=== PATIENT | male | born 1995 | race Caucasian/White ===

== ENCOUNTER 2016-08-13 20:43 | Emergency (ER) | payer SELFPAY ==
[2016-08-13 20:48] VITALS: BP 157/91
--- NOTE | 2016-08-13 21:03 | PHYS DOC ---
Past Medical History Past Medical History: Asthma, Other Additional Past Medical Histor: CURRENT RIGHT COLLAR BONE FX Past Surgical History: No Surgical History Alcohol Use: None Drug Use: None Adult General Chief Complaint Chief Complaint: SORE THROAT HPI HPI Patient is a 21 year old male presents emergency Department stating he's had a cough and congestion as well as use. He states that he has had sinus pressure. He states that he's had a sore throat. His been temperatures but 3. His been taken Tylenol and ibuprofen at home with a list is a Tylenol in a 1:00. Patient states is also been having some vomiting and diarrhea. He states since Saturday he has vomited approximately 3-4 times with the last one having slight blood mixed in with mucus. He states his been having diarrhea stools approximately 5- 6 on Saturday with no blood noted in the stools. Review of Systems Review of Systems Constitutional: Denies fever or chills [] Eyes: Denies change in visual acuity, redness, or eye pain [] HENT: nasal congestion and sore throat [] Respiratory: cough and shortness of breath with drinking fluids and coughing[] Cardiovascular: No additional information not addressed in HPI [] GI: Denies abdominal pain, nausea, vomiting, bloody stools or diarrhea [] : Denies dysuria or hematuria [] Musculoskeletal: Denies back pain or joint pain [] Integument: Denies rash or skin lesions [] Neurologic: Denies headache, focal weakness or sensory changes [] Current Medications Current Medications Current Medications Medications (Trade) Dose Ordered Sig/Dina Start Time Stop Time Status Last Admin Dose Admin Ibuprofen (Motrin) 800 mg 1X ONCE 08/13/16 22:00 08/13/16 22:01 08/13/16 21:31 800 MG Allergies Allergies Allergies Coded Allergies Type Severity Reaction Last Updated Verified No Known Drug Allergies 04/04/15 No Physical Exam Physical Exam Constitutional: Well developed, well nourished, no acute distress, non-toxic appearance. [] HENT: Normocephalic, atraumatic, bilateral external ears normal, oropharynx moist, no oral exudates, nose normal. Bilateral tympanic membranes appear to be normal. Patient with frontal sinus tenderness noted no maxillary sinus tenderness noted. Patient with postnasal drip. Throat appears to have erythematous with no exudate noted the area does appear to be red. Eyes: PERRLA, EOMI, conjunctiva normal, no discharge. [] Neck: Normal range of motion, no tenderness, supple, no stridor. [] Cardiovascular:Heart rate regular rhythm, no murmur [] Lungs & Thorax: Bilateral breath sounds clear to auscultation [] Skin: Warm, dry, no erythema, no rash. [] Back: No tenderness Extremities: No tenderness, no cyanosis, no clubbing, ROM intact, no edema. [] Neurologic: Alert and oriented X 3, normal motor function, normal sensory function, no focal deficits noted. [] Psychologic: Affect normal, judgement normal, mood normal. [] Current Patient Data Vital Signs Vital Signs Date Time Temp Pulse Resp B/P Pulse Ox O2 Delivery O2 Flow Rate FiO2 08/13/16 20:48 98.1 105 22 97 Room Air 98.1 EKG EKG [] Radiology/Procedures Radiology/Procedures [] Course & Med Decision Making Course & Med Decision Making Pertinent Labs and Imaging studies reviewed. (See chart for details) Chest x-ray was negative Dr. Paris. Influenza swab was not obtained as the patient is 4 days into the nausea vomiting diarrhea an upper respiratory congestion. Patient does have sinus pressure and discomfort. We'll provide him with Augmentin. We'll also provide him with some Zofran to help with his nausea vomiting. Clear liquid diet for the next 24 hours. Patient will be discharged home in stable condition signs and symptoms to return back to emergency department been provided. Patient did not exhibit nausea or vomiting or diarrhea while here in the emergency department. On discharging patient from the emergency department he stated that he was seen at [facility] approximately one week ago and tested positive for influenza as well as he was tested for strep which was negative. Patient states that he was not provided with any medications at that time. [] Dragon Disclaimer Dragon Disclaimer This electronic medical record was generated, in whole or in part, using a voice recognition dictation system. Departure Departure Impression: Primary Impression: Sinusitis Additional Impression: Vomiting Disposition: 01 HOME, SELF-CARE Condition: STABLE Referrals: NO PCP (PCP) Patient Instructions: Nausea and Vomiting, [id number], Sinusitis, Easy-to- Read Additional Instructions: Home to rest Medication as prescribed Tylenol or Ibuprofen for fever, chill or generalized body aches and discomfort Sudafed for frontal headache and pressure Mucinex DM for congestion and cough Followup with your primary care provider in 3-5 days Return to emergency department as needed for signs and symptoms that become worse. Scripts Amoxicillin/Potassium Clav (Augmentin 875-125 Tablet)1 Each Tablet1 Tab PO BID # 20 TAB Prov:HAIDER LIU APRN 08/13/16 Problem Qualifiers AHIDER LIU APRN August 13, 2016 21:03
[2016-08-13] MEDS ORDERED: AMOX1TAB61 PO (21:50)
[2016-08-13] MEDS ORDERED: IBUPROFEN 800 MG TABLET. PO ONE (22:00)
[2016-08-14 07:07] LABS: NEGATIVE OBC STREP NEG; POSITIVE OBC STREP POS
--- NOTE | 2016-08-14 07:57 | RAD ---
Indication shortness of air cough sore throat. PA and lateral views of the chest were obtained. Comparison is made to a single view examination 06/28/2014. The heart and pulmonary vessels appear normal. The lungs are clear. A significant change compared to the previous exam is not seen. IMPRESSION: Normal study.
== END 2016-08-13 21:54 | disposition home or self-care (01) ==
LOC: ER 20:43
DX: J32.1 Chronic frontal sinusitis (principal); R11.2 Nausea with vomiting, unspecified; R19.7 Diarrhea, unspecified; J45.909 Unspecified asthma, uncomplicated
CPT/HCPCS: 71020; 87070; 87880; 99285-25

== ENCOUNTER 2017-06-10 09:47 | Emergency (ER) | payer SELFPAY | END 2017-06-10 11:32 | disposition home or self-care (01) | LOC: ER 09:47 | DX: M25.512 Pain in left shoulder (principal); J45.909 Unspecified asthma, uncomplicated; F12.10 Cannabis abuse, uncomplicated | CPT/HCPCS: 73030; 99284 ==

== ENCOUNTER 2018-07-19 08:44 | Emergency (ER) | payer SELFPAY ==
[~2018-07-19] VITALS: Ht 188 cm; Wt 127.0 kg
[~2018-07-19 08:44] MED LIST: AMOX1TAB61 PO; CYCL10TA2 PO; NAPR-514 PO
--- NOTE | 2018-07-19 09:53 | PHYS DOC ---
Past Medical History Past Medical History: Asthma, Other Additional Past Medical Histor: RIGHT COLLAR BONE FX (REFUGIO RUIZ APRN) Past Surgical History: No Surgical History (REFUGIO RUIZ APRN) Alcohol Use: Occasionally Drug Use: Marijuana (REFUGIO RUIZ APRN) Adult General Chief Complaint Chief Complaint: MULTIPLE COMPLAINTS HPI HPI Patient is a 22 year old with history of smoking, asthma who presents today complaining of productive cough that began yesterday. Patient since this morning he woke up, he started coughing so hard he couldn't go to work. He is requesting a note for work. He is also complaining of a fever. Temperature in the ED is 98.2. (REFUGIO RUIZ APRN) Review of Systems Review of Systems Constitutional: Reports subjective fevers Eyes: Denies change in visual acuity, redness, or eye pain [] HENT: Denies nasal congestion or sore throat [] Respiratory: Reports cough, denies shortness of breath [] Cardiovascular: No additional information not addressed in HPI [] GI: Denies abdominal pain, nausea, vomiting, bloody stools or diarrhea [] : Denies dysuria or hematuria [] Musculoskeletal: Denies back pain or joint pain [] Integument: Denies rash or skin lesions [] Neurologic: Denies headache, focal weakness or sensory changes [] All other systems were reviewed and found to be within normal limits, except as documented in this note. (JOEYTHAIREFUGIO GO) Current Medications Current Medications Current Medications Medications (Trade) Dose Ordered Sig/Dina Start Time Stop Time Status Last Admin Dose Admin Albuterol/ Ipratropium (Duoneb) 3 ml 1X ONCE 07/19/18 10:00 07/19/18 10:01 DC 07/19/18 09:53 3 ML (MARIA L WILSON MD) Allergies Allergies Allergies Coded Allergies Type Severity Reaction Last Updated Verified No Known Drug Allergies 04/04/15 No (MARIA L WILSON MD) Physical Exam Physical Exam Constitutional: Well developed, well nourished, no acute distress, non-toxic appearance. [] HENT: Normocephalic, atraumatic, bilateral external ears normal, oropharynx moist, no oral exudates, nose normal. [] Eyes: PERRLA, EOMI, conjunctiva normal, no discharge. [] Neck: Normal range of motion, no tenderness, supple, no stridor. [] Cardiovascular:Heart rate regular rhythm, no murmur [] Lungs & Thorax: Bilateral breath sounds clear to auscultation [] Abdomen: Bowel sounds normal, soft, no tenderness, no masses, no pulsatile masses. [] Skin: Warm, dry, no erythema, no rash. [] Back: No tenderness, no CVA tenderness. [] Extremities: No tenderness, no cyanosis, no clubbing, ROM intact, no edema. [] Neurologic: Alert and oriented X 3, normal motor function, normal sensory function, no focal deficits noted. [] Psychologic: Affect normal, judgement normal, mood normal. [] (REFUGIO RUIZ APRN) Current Patient Data Vital Signs Vital Signs Date Time Temp Pulse Resp B/P (MAP) Pulse Ox O2 Delivery O2 Flow Rate FiO2 07/19/18 10:45 87 18 122/78 (93) 98 Room Air 07/19/18 09:22 98.2 98.2 (MARIA L WILSON MD) EKG EKG [] (REFUGIO RUIZ APRN) Radiology/Procedures Radiology/Procedures []PROCEDURE: CHEST PA & LATERAL PA and lateral views of the chest. Comparison: Chest radiograph dated 08/13/2016. Indication: SOA,CP,COUGH X1 WEEK HX OF ASTHMA Findings: Normal lung volume. No focal airspace disease. Normal pulmonary vasculature. No pleural effusion. No pneumothorax. The cardiomediastinal silhouette is normal in appearance. The great vessels are normal. No acute osseous abnormality. Impression: 1. No acute cardiopulmonary process. Electronically signed by: Chava Rincon MD (07/19/2018 10:26 AM) [facility] DICTATED and SIGNED BY: CHAVA RINCON MD DATE: 07/19/18 1026 (REFUGIO RUIZ APRN) Course & Med Decision Making Course & Med Decision Making Pertinent Labs and Imaging studies reviewed. (See chart for details) This is a 22-year-old male patient with history of asthma presenting today complaining of cough and fever since yesterday. Patient is afebrile in the ED. Lungs are clear though we ordered a breathing treatment for him per his request. He is a smoker. He was advised to consider smoking cessation. Chest x- ray is negative. Patient was discharged to home. Given a note for work. Given prednisone and Tessalon Perles. Also given albuterol inhaler. Follow-up with PCP in 1-2 weeks. (REFUGIO RUIZ APRN) Course & Med Decision Making Staff Physician Addendum: I was working in the ER during the course of this patient's visit. I was available for consultation as needed, but I was not directly involved in the care of this patient. (MARIA L WILSON MD) Dragon Disclaimer Dragon Disclaimer This electronic medical record was generated, in whole or in part, using a voice recognition dictation system. (REFUGIO RUIZ APRN) Departure Departure Impression: Primary Impression: Smoking addiction Additional Impression: Asthma Disposition: HOME, SELF-CARE Condition: STABLE Referrals: NO PCP (PCP) Patient Instructions: Asthma, Adult, Smoking Cessation Additional Instructions: You were seen in the emergency room for asthma and a cough. Consider smoking cessation. Use the prescribed medications as ordered. Follow-up with your own doctor in 1-2 weeks. Scripts Benzonatate (TESSALON PERLE) 100 Mg Capsule 1 CAP PO TID, #30 CAP Prov: REFUGIO RUIZ APRN 07/19/18 Albuterol Sulfate (VENTOLIN HFA INHALER) 18 Gm Hfa.aer.ad 2 PUFF INH Q4HRS for FOR ASTHMA, #1 INHALER 0 Refills Prov: REFUGIO RUIZ APRN 07/19/18 Prednisone (PREDNISONE) 50 Mg Tablet 1 TAB PO DAILY, #5 TAB Prov: REFUGIO RUIZ APRN 07/19/18 Problem Qualifiers Additional Impression: Asthma Asthma severity: mild Asthma persistence: intermittent Asthma complication type: uncomplicated Qualified Codes: J45.20 - Mild intermittent asthma, uncomplicated REFUGIO RUIZ APRN Jul 19, 2018 09:53 MARIA L WILSON MD Jul 26, 2018 20:17
[2018-07-19] MEDS ORDERED: IPRATRPIUM/ALBUTEROL 0.5/2.5MG 3 ML NEBU. NEB ONE (10:00)
--- NOTE | 2018-07-19 10:29 | RAD ---
PA and lateral views of the chest. Comparison: Chest radiograph dated 08/13/2016. Indication: SOA,CP,COUGH X1 WEEK HX OF ASTHMA Findings: Normal lung volume. No focal airspace disease. Normal pulmonary vasculature. No pleural effusion. No pneumothorax. The cardiomediastinal silhouette is normal in appearance. The great vessels are normal. No acute osseous abnormality. Impression: 1. No acute cardiopulmonary process. Electronically signed by: Chava Rincon MD (07/19/2018 10:26 AM) [facility]
[2018-07-19] MEDS ORDERED: VENTOLIN HFA18 GM INH (10:41)
[2018-07-19] MEDS ORDERED: BENZ100C PO (10:41)
[2018-07-19] MEDS ORDERED: PRED50TA PO (10:41)
[2018-07-19 10:45] VITALS: BP 122/78
== END 2018-07-19 10:45 | disposition home or self-care (01) ==
LOC: ER 08:44
DX: J45.20 Mild intermittent asthma, uncomplicated (principal); F17.200 Nicotine dependence, unspecified, uncomplicated; R50.9 Fever, unspecified
CPT/HCPCS: 71046; 94640; 99283; J7620

== ENCOUNTER 2018-07-27 02:23 | Emergency (ER) | payer SELFPAY ==
[~2018-07-27] VITALS: Ht 182.9 cm; Wt 127.0 kg
[~2018-07-27 02:23] MED LIST changes: +BENZ100C PO; +PRED50TA PO; +VENTOLIN HFA18 GM INH
[2018-07-27 02:52] LABS: BASO # 0.1 x10^3/uL (0.0-0.2); BASO % 0 % (0-3); EOS # 0.2 x10^3/uL (0.0-0.7); EOS % 2 % (0-3); HEMATOCRIT 51.4 % (39.0-53.0); HEMOGLOBIN 17.4 g/dL (13.0-17.5); LYMPH # 3.8 x10^3/uL (1.0-4.8); LYMPH % 24 % (24-48); MEAN CORPUSCULAR HEMOGLOBIN 28 pg (25-35); MEAN CORPUSCULAR HGB CONC 34 g/dL (31-37); MEAN CORPUSCULAR VOLUME 83 fL (79-100); MONO # 1.2 x10^3/uL (0.0-1.1); MONO % 8 % (0-9); NEUT # 10.6 x10^3uL (1.8-7.7); NEUT % 67 % (31-73); PLATELET COUNT 248 x10^3/uL (140-400); RED BLOOD COUNT 6.18 x10^6/uL (4.30-5.70)
[2018-07-27 03:06] LABS: CALCIUM 9.5 mg/dL (8.5-10.1); GFR 93.4; POTASSIUM 3.6 mmol/L (3.5-5.1)
[2018-07-27 03:13] LABS: ALBUMIN 4.2 g/dL (3.4-5.0); ALBUMIN/GLOBULIN RATIO 1.2 (1.0-1.7); TOTAL BILIRUBIN 0.4 mg/dL (0.2-1.0); TOTAL PROTEIN 7.6 g/dL (6.4-8.2)
[2018-07-27 03:42] LABS: PROTHROMBIN TIME PATIENT 12.8 SEC (11.7-14.0)
[2018-07-27 03:59] LABS: D-DIMER < 0.27 ug/mlFEU (0.00-0.50)
[2018-07-27 04:08] VITALS: BP 120/69
--- NOTE | 2018-07-27 05:00 | PHYS DOC ---
Past Medical History Past Medical History: Asthma, Other Additional Past Medical Histor: RIGHT COLLAR BONE FX Past Surgical History: No Surgical History Alcohol Use: Occasionally Drug Use: Marijuana Adult General Chief Complaint Chief Complaint: CHEST PAIN HPI HPI Patient is a 22 year old chest pain center and left side of the chest times one week he was seen here a week ago diagnosed with bronchitis basically he says maybe a touch of pneumonia but the chart review does not corroborate that. Patient began to have increased shortness of breath and some tingling in the left arm as well as some nausea as well so he came to the emergency room tonight for evaluation chest pain is fairly constant does wax and wane in severity it is sharp worse with deep breathing mainly on the left side of the chest Review of Systems Review of Systems Constitutional: Denies fever or chills [] Eyes: Denies change in visual acuity, redness, or eye pain [] HENT: Denies nasal congestion or sore throat [] Respiratory: Cardiovascular: No additional information not addressed in HPI [] GI: Denies abdominal pain,, bloody stools or diarrhea [] Integument: Denies rash or skin lesions [] Neurologic: Denies headache, focal weakness or sensory changes [] Endocrine: Denies polyuria or polydipsia [] All other systems were reviewed and found to be within normal limits, except as documented in this note. Allergies Allergies Allergies Coded Allergies Type Severity Reaction Last Updated Verified No Known Drug Allergies 04/04/15 No Physical Exam Physical Exam Constitutional: Well developed, well nourished, no acute distress, non-toxic appearance. [] HENT: Normocephalic, atraumatic, bilateral external ears normal, oropharynx moist, no oral exudates, nose normal. [] Eyes: PERRLA, EOMI, conjunctiva normal, no discharge. [] Neck: Normal range of motion, no tenderness, supple, no stridor. [] Cardiovascular:Heart rate regular rhythm, no murmur [] Lungs & Thorax: Bilateral breath sounds clear to auscultation []reproducible chest wall tenderness LEFT PEC MUSCLE AREA. Abdomen: Bowel sounds normal, soft, no tenderness, no masses, no pulsatile masses. [] Extremities: No tenderness, no cyanosis, no clubbing, ROM intact, no edema. [] Neurologic: Alert and oriented X 3, normal motor function, normal sensory function, no focal deficits noted. [] Psychologic: Affect normal, judgement normal, mood normal. [] Current Patient Data Vital Signs Vital Signs Date Time Temp Pulse Resp B/P (MAP) Pulse Ox O2 Delivery O2 Flow Rate FiO2 07/27/18 04:08 118 20 120/69 (86) 98 07/27/18 02:26 98.0 Room Air 98.0 Lab Values Laboratory Tests Test 07/27/18 02:35 White Blood Count 16.0 x10^3/uL (4.0-11.0) H Red Blood Count 6.18 x10^6/uL (4.30-5.70) H Hemoglobin 17.4 g/dL (13.0-17.5) Hematocrit 51.4 % (39.0-53.0) Mean Corpuscular Volume 83 fL (79-100) Mean Corpuscular Hemoglobin 28 pg (25-35) Mean Corpuscular Hemoglobin Concent 34 g/dL (31-37) Red Cell Distribution Width 14.0 % (11.5-14.5) Platelet Count 248 x10^3/uL (140-400) Neutrophils (%) (Auto) 67 % (31-73) Lymphocytes (%) (Auto) 24 % (24-48) Monocytes (%) (Auto) 8 % (0-9) Eosinophils (%) (Auto) 2 % (0-3) Basophils (%) (Auto) 0 % (0-3) Neutrophils # (Auto) 10.6 x10^3uL (1.8-7.7) H Lymphocytes # (Auto) 3.8 x10^3/uL (1.0-4.8) Monocytes # (Auto) 1.2 x10^3/uL (0.0-1.1) H Eosinophils # (Auto) 0.2 x10^3/uL (0.0-0.7) Basophils # (Auto) 0.1 x10^3/uL (0.0-0.2) Prothrombin Time 12.8 SEC (11.7-14.0) Prothrombin Time INR 1.0 (0.8-1.1) D-Dimer (Gabriela) < 0.27 ug/mlFEU Sodium Level 141 mmol/L (136-145) Potassium Level 3.6 mmol/L (3.5-5.1) Chloride Level 101 mmol/L (98-107) Carbon Dioxide Level 28 mmol/L (21-32) Anion Gap 12 (6-14) Blood Urea Nitrogen 8 mg/dL (8-26) Creatinine 1.0 mg/dL (0.7-1.3) Estimated GFR (Cockcroft-Gault) 93.4 BUN/Creatinine Ratio 8 (6-20) Glucose Level 101 mg/dL (70-99) H Calcium Level 9.5 mg/dL (8.5-10.1) Total Bilirubin 0.4 mg/dL (0.2-1.0) Aspartate Amino Transferase (AST) 20 U/L (15-37) Alanine Aminotransferase (ALT) 61 U/L (16-63) Alkaline Phosphatase 87 U/L (46-116) Troponin I Quantitative < 0.017 ng/mL (0.000-0.055) Total Protein 7.6 g/dL (6.4-8.2) Albumin 4.2 g/dL (3.4-5.0) Albumin/Globulin Ratio 1.2 (1.0-1.7) Laboratory Tests 07/27/18 02:35 Laboratory Tests 07/27/18 02:35 EKG EKG []Normal sinus rhythm rate [address] elevation or depression was noted interpreted by me the timing encounter. AVL is difficult to interpret but otherwise no STEMI was seen Radiology/Procedures Radiology/Procedures [] Impressions: Chest x-ray interpreted by me showed no pneumothorax no pneumonia no bony abnormalities. Normal cardiac silhouette normal Course & Med Decision Making Course & Med Decision Making Pertinent Labs and Imaging studies reviewed. (See chart for details) []22-year-old male presenting with chest pain and some shortness of breath here workup was negative EKG troponin negative for ischemia chest x-ray was essentially negative d-dimer negative patient was reassured counseled on smoking cessation. Perhaps there is some bronchospasm perhaps she is anxious perhaps it is costochondritis any rate the patient is safe for discharge home at this time. No signs of PE dissection or ACS Dragon Disclaimer Dragon Disclaimer This electronic medical record was generated, in whole or in part, using a voice recognition dictation system. Departure Departure Impression: Primary Impression: Chest pain Disposition: HOME, SELF-CARE Condition: STABLE Patient Instructions: Chest Pain (Nonspecific), [id number] Additional Instructions: PLEASE STOP SMOKING! LENAGHAN,MARIA L MD Jul 27, 2018 05:00
--- NOTE | 2018-07-27 06:20 | RAD ---
AP chest x-ray HISTORY: Shortness of breath. FINDINGS: Comparison is made to chest x-ray from July 19, 2018. Heart size normal. Mediastinal silhouette is normal. No pneumothorax, pulmonary opacities or pleural effusions. Bones are unremarkable. IMPRESSION: No acute process. Electronically signed by: Maximino Simpson MD (07/27/2018 6:17 AM) [facility]
--- NOTE | 2018-07-27 10:26 | EKG ---
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
== END 2018-07-27 04:14 | disposition home or self-care (01) ==
LOC: ER 02:23
DX: R07.89 Other chest pain (principal); R11.0 Nausea; R06.02 Shortness of breath; J45.909 Unspecified asthma, uncomplicated
CPT/HCPCS: 36415; 71045; 80053; 84484; 85025; 85379; 85610; 93005; 99285-25

== ENCOUNTER 2019-10-16 22:35 | Emergency (ER) | payer SELFPAY ==
[~2019-10-16] VITALS: Ht 185.4 cm; Wt 127.2 kg
[2019-10-16 22:44] VITALS: BP 175/86
[2019-10-16] MEDS ORDERED: LIDOCAINE 1% Multi-Dose 20 ML VIAL. ONE (23:19)
[2019-10-16] MEDS ORDERED: LIDOCAINE 1% Multi-Dose 20 ML VIAL. INJ ONE (23:45)
--- NOTE | 2019-10-17 00:07 | PHYS DOC ---
Past Medical History Past Medical History: Asthma, Other Additional Past Medical Histor: RIGHT COLLAR BONE FX Past Surgical History: No Surgical History Smoking Status: Current Every Day Smoker Alcohol Use: Occasionally Drug Use: Marijuana General Adult EDM: Chief Complaint: LACERATION/AVULSION HPI: HPI: Patient is a 24 year old male presenting to the ER with a laceration to his right foot. Patient states that he was moving furniture at home on the bed board fell on his right foot. Patient denies any other injury. Patient is able to move his toes and has normal sensation. Review of Systems: Review of Systems: Constitutional: Denies fever or chills. [] Eyes: Denies change in visual acuity. [] HENT: Denies nasal congestion or sore throat. [] Respiratory: Denies cough or shortness of breath. [] Cardiovascular: Denies chest pain or edema. [] : Denies dysuria. [] Musculoskeletal: Laceration to the right foot Neurologic: Denies headache, focal weakness or sensory changes. [] Heart Score: Risk Factors: Risk Factors: DM, Current or recent (<one month) smoker, HTN, HLP, family history of CAD, obesity. Risk Scores: Score 0 - 3: 2.5% MACE over next 6 weeks - Discharge Home Score 4 - 6: 20.3% MACE over next 6 weeks - Admit for Clinical Observation Score 7 - 10: 72.7% MACE over next 6 weeks - Early Invasive Strategies Current Medications: Current Medications Medications (Trade) Dose Ordered Sig/Dina Start Time Stop Time Status Last Admin Dose Admin Lidocaine HCl (Lidocaine 1% 20ml Vial) 20 ml 1X ONCE 10/16/19 23:45 10/16/19 23:46 DC 10/16/19 23:24 20 ML Allergies: Allergies: Allergies Coded Allergies Type Severity Reaction Last Updated Verified No Known Drug Allergies 04/04/15 No Physical Exam: PE: Constitutional: Well developed, well nourished, no acute distress, non-toxic appearance. [] HENT: Normocephalic, atraumatic Eyes: EOMI Neck: Normal range of motion, Supple Respiratory: No respiratory distress Extremities: 2.5 cm laceration on the right foot Neurologic: Alert and oriented X 3 Current Patient Data: Vital Signs: Vital Signs Date Time Temp Pulse Resp B/P (MAP) Pulse Ox O2 Delivery O2 Flow Rate FiO2 10/16/19 22:44 98.5 96 16 175/86 (115) 99 Room Air 98.5 EKG: EKG: [] Radiology/Procedures: Radiology/Procedures: [] Course & Med Decision Making: Course & Med Decision Making Wound closed with 5 sutures. Sutures to be removed in 7 to 10 days. Dressing applied. Discussed plan of care with patient. Patient is instructed to follow up with PCP in one to 2 days. Appropriate discharge instructions given to patient to return to the ED or to seek immediate medical evaluation. Patient is instructed to return to the ED if symptoms worsen or if any concerns. Dragon Disclaimer: Dragon Disclaimer: This electronic medical record was generated, in whole or in part, using a voice recognition dictation system. Departure Departure Impression: Primary Impression: Foot laceration Disposition: 01 HOME, SELF-CARE Condition: STABLE Referrals: NO PCP (PCP) Patient Instructions: Laceration Care, Adult Additional Instructions: Sutures need to be removed in 7 to 10 days. Please keep wound clean and dry. Justicifation of Admission Dx: Justifications for Admission: Justification of Admission Dx: No Laceration/Wound Repair Laceration/Wound Repair : Wound Location: lower extremity Wound's Depth, Shape: superficial Wound Explored: clean Betadine Prep?: Yes Anesthesia: 1% Lidocaine Volume Anesthetic (ccs): 3 Wound Debrided: minimal Wound Repaired With: sutures Suture Size/Type: 5:0, proline Sterile Dressing Applied?: Yes Progress Patient tolerated procedure without any complications or difficulty. HORACIO DIAZ DO Oct 17, 2019 00:07
== END 2019-10-17 00:19 | disposition home or self-care (01) ==
LOC: ER 22:35
DX: S91.311A Laceration without foreign body, right foot, initial encounter (principal); J45.909 Unspecified asthma, uncomplicated; F17.200 Nicotine dependence, unspecified, uncomplicated; W20.8XXA Other cause of strike by thrown, projected or falling object, initial encounter; Y93.89 Activity, other specified; Y92.098 Other place in other non-institutional residence as the place of occurrence of the external cause; Y99.8 Other external cause status
CPT/HCPCS: 12001; 99282; J3490

== ENCOUNTER 2020-01-05 21:12 | Emergency (ER) | payer SELFPAY ==
[~2020-01-05] VITALS: Ht 188 cm; Wt 113.6 kg
[2020-01-05 21:24] VITALS: BP 133/79
== END 2020-01-05 23:07 | disposition left against medical advice (07) ==
LOC: ER 21:12
DX: S61.211A Laceration without foreign body of left index finger without damage to nail, initial encounter (principal); X58.XXXA Exposure to other specified factors, initial encounter; Y93.89 Activity, other specified; Y92.89 Other specified places as the place of occurrence of the external cause; Y99.8 Other external cause status; Z53.21 Procedure and treatment not carried out due to patient leaving prior to being seen by health care provider